=== PATIENT | female | born 1980 | race Caucasian/White ===

== ENCOUNTER 2022-09-22 23:45 | Emergency (ER) | payer MEDICARE, MEDICAID ==
[2022-09-23] MEDS ORDERED: cefTRIAXone (ROCEPHIN) 1 GM VIAL ONE (00:25)
[2022-09-23] MEDS ORDERED: Ketorolac Tromethamine 30 MG/ML VIAL ONE (00:25)
[2022-09-23] MEDS ORDERED: Furosemide 40 MG/4 ML VIAL ONE (00:25)
[2022-09-23] MEDS ORDERED: Morphine 4 MG/ML VIAL ONE (00:25)
== END 2022-09-23 05:58 | disposition home or self-care (01) ==
LOC: ERS 23:45
DX: L03.116 Cellulitis of left lower limb (principal); L03.115 Cellulitis of right lower limb; E66.9 Obesity, unspecified; F17.290 Nicotine dependence, other tobacco product, uncomplicated
CPT/HCPCS: 83880; 84443; 96374; 96375; J0696; J1885; J1940; J2270